=== PATIENT | female | born 1975 | race Two or more races ===

== ENCOUNTER 2018-08-26 10:45 | Outpatient (CLI) | payer OTHER ==
[~2018-08-26] VITALS: Ht 167.6 cm; Wt 136.1 kg
== END 2018-08-26 11:00 | disposition home or self-care (01) ==
LOC: OFIC 805 10:45
DX: H91.8X3 Other specified hearing loss, bilateral (principal); R42 Dizziness and giddiness

== ENCOUNTER 2018-09-24 09:13 | Outpatient (CLI) | payer OTHER ==
[~2018-09-24] VITALS: Ht 152.4 cm; Wt 136.1 kg
== END 2018-09-24 09:30 | disposition home or self-care (01) ==
LOC: OFIC 805 09:13
DX: R42 Dizziness and giddiness (principal); H90.3 Sensorineural hearing loss, bilateral

== ENCOUNTER 2022-03-13 13:39 | Outpatient (CLI) | payer OTHER | END 2022-03-13 13:43 | disposition home or self-care (01) | LOC: LAB 13:39 | PROVIDERS: ATTEND Internal Medicine | DX: R79.1 Abnormal coagulation profile (principal) ==

== ENCOUNTER 2022-03-14 06:00 | Day surgery (SDC) | payer OTHER | END 2022-03-14 16:00 | disposition home or self-care (01) | LOC: CIR.AMB 06:00 | PROVIDERS: ATTEND Obstetrics & Gynecology Gynecology | DX: N81.11 Cystocele, midline (principal); N88.4 Hypertrophic elongation of cervix uteri; I10 Essential (primary) hypertension; E66.01 Morbid (severe) obesity due to excess calories ==

== ENCOUNTER → 2023-07-02 08:39 | Outpatient (CLI) | payer OTHER ==
[2023-07-02 10:28] LABS: HEMATOCRIT 33.8 % (36.0-45.00); MEAN CELL VOLUME 78.1 fL (80.00-100.00); MEAN CORPUSCULAR HEMOGLOBIN 25.5 pg (27.00-32.0); MEAN CORPUSCULAR HGB CONC 32.6 g/dl (32.0-36.0); PLATELET COUNT 343 K/uL (150-450); RED BLOOD COUNT 4.33 M/uL (4.00-6.00); RED CELL DISTRIBUTION WIDTH 18.3 % (11.5-14.5)
[2023-07-02 10:36] LABS: INR 1.05; PARTIAL THROMBOPLASTIN TIME 37.5 SECONDS (22.0-34.0)
[2023-07-02 11:01] LABS: ALBUMIN 3.2 gm/dL (3.4-5.0); BILIRUBIN TOTAL 0.31 mg/dL (0.3-1.2); CALCIUM 8.7 mg/dL (8.5-10.1); CREATININE SERUM 0.77 mg/dL (0.55-1.02); FERRITIN 43.2 NG/ML (8-252); GFR 80.35; GLOBULINA 4.2 G/DL (2.4-3.5); POTASSIUM 3.98 mEq/L (3.5-5.1); TOTAL PROTEIN 7.4 gm/dL (6.4-8.2); TSH 1.48 uIU/mL (0.358-3.74)
[2023-07-02 11:18] LABS: COL EPI 115 SECONDS (82-175)
[2023-07-02 11:49] LABS: FOLIC ACID > 20.00 ng/ml (4.78-20)
[2023-07-03 16:10] LABS: hgb a 97.6 % (96.4-98.8); hgb a2 2.4 % (1.8-3.2); hgb f 0 % (0.0-2.0); hgb s 0 % (0.0)
[2023-07-04 09:40] LABS: MANUAL PLATELET COUNT 504
[2023-07-04 09:41] LABS: PLATELET ESTIMATE INCREASED (NORMAL)
[2023-07-04 18:06] LABS: PARIETAL CELL ANTIBODIES 1.8 Units (0.0-20.0); g6pd quant 139 (127-427); rbc 4.58 x10E6/uL (3.77-5.28)
== END | disposition home or self-care (01) ==
LOC: LAB 08:39
PROVIDERS: ATTEND Internal Medicine Hematology & Oncology
DX: D50.8 Other iron deficiency anemias (principal); R79.9 Abnormal finding of blood chemistry, unspecified; I10 Essential (primary) hypertension; R74.02 Elevation of levels of lactic acid dehydrogenase [LDH]; K76.89 Other specified diseases of liver; D63.8 Anemia in other chronic diseases classified elsewhere; D55.0 Anemia due to glucose-6-phosphate dehydrogenase [G6PD] deficiency; D51.1 Vitamin B12 deficiency anemia due to selective vitamin B12 malabsorption with proteinuria; D51.0 Vitamin B12 deficiency anemia due to intrinsic factor deficiency; E03.8 Other specified hypothyroidism; E06.3 Autoimmune thyroiditis; D68.8 Other specified coagulation defects; D69.1 Qualitative platelet defects

== ENCOUNTER 2023-09-18 09:18 | Outpatient (CLI) | payer OTHER ==
[2023-09-18 10:30] LABS: HEMATOCRIT 35.9 % (36.0-45.00); HEMOGLOBIN 11.5 g/dL (12.0-15.00); MEAN CELL VOLUME 77.2 fL (80.00-100.00); MEAN CORPUSCULAR HEMOGLOBIN 24.7 pg (27.00-32.0); MEAN CORPUSCULAR HGB CONC 31.9 g/dl (32.0-36.0); PLATELET COUNT 381 K/uL (150-450); RED BLOOD COUNT 4.65 M/uL (4.00-6.00); RED CELL DISTRIBUTION WIDTH 17.5 % (11.5-14.5)
[2023-09-18 11:11] LABS: COL EPI 96 SECONDS (82-175)
[2023-09-18 11:12] LABS: INR 1.08; PROTHROMBIN TIME 11.3 SECONDS (9.0-11.5)
[2023-09-18 11:13] LABS: % SATURACION 9.4 % (15-50); ALBUMIN 3.4 gm/dL (3.4-5.0); BILIRUBIN TOTAL 0.47 mg/dL (0.3-1.2); CREATININE SERUM 0.74 mg/dL (0.55-1.02); FERRITIN 52.1 NG/ML (8-252); GFR 83.76; GLOBULINA 4.2 G/DL (2.4-3.5); PARTIAL THROMBOPLASTIN TIME 39.2 SECONDS (22.0-34.0); POTASSIUM 3.97 mEq/L (3.5-5.1); TOTAL PROTEIN 7.6 gm/dL (6.4-8.2)
[2023-09-18 11:14] LABS: PT 50:50 10.3 SECONDS (9.7-11.4); PTT 50:50 32.8 SECONDS (22.4-33.0)
[2023-09-18 12:06] LABS: MANUAL PLATELET COUNT 620
[2023-09-18 12:14] LABS: PLATELET ESTIMATE INCREASED (NORMAL)
[2023-09-19 13:19] LABS: FOLIC ACID > 20.00 ng/ml (4.78-20)
[2023-09-20 16:07] LABS: g6pd quant 111 (127-427)
== END 2023-09-18 09:29 | disposition home or self-care (01) ==
LOC: LAB 09:18
PROVIDERS: ATTEND Internal Medicine Hematology & Oncology
DX: D50.8 Other iron deficiency anemias (principal); R79.9 Abnormal finding of blood chemistry, unspecified; K76.89 Other specified diseases of liver; I10 Essential (primary) hypertension; R74.02 Elevation of levels of lactic acid dehydrogenase [LDH]; D55.0 Anemia due to glucose-6-phosphate dehydrogenase [G6PD] deficiency; D68.8 Other specified coagulation defects; D69.1 Qualitative platelet defects; D51.3 Other dietary vitamin B12 deficiency anemia; H91.3 Deaf nonspeaking, not elsewhere classified

== ENCOUNTER → 2023-10-08 09:36 | Outpatient (CLI) | payer OTHER | END | disposition home or self-care (01) | LOC: LAB 09:36 | PROVIDERS: ATTEND Internal Medicine Hematology & Oncology | DX: D68.8 Other specified coagulation defects (principal); D50.8 Other iron deficiency anemias; D55.0 Anemia due to glucose-6-phosphate dehydrogenase [G6PD] deficiency; D51.3 Other dietary vitamin B12 deficiency anemia; H91.3 Deaf nonspeaking, not elsewhere classified ==